=== PATIENT | male | born 1995 | race Caucasian/White ===

== ENCOUNTER 2017-11-05 18:11 | Emergency (ER) | payer OTHER ==
[~2017-11-05] VITALS: Ht 177.8 cm; Wt 65.4 kg
[~2017-11-05 18:11] MED LIST: LORT5TAB PO; MEDR4PAK3 PO; PENI500T PO; Z.0.NO CURRENT MEDS
[2017-11-05 18:29] VITALS: BP 125/76; PULSE 64; RESP 16; TEMP 98.6; O2SAT 97
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
== END 2017-11-05 19:47 | disposition home or self-care (01) ==
LOC: PHEFT 18:11
DX: H92.02 Otalgia, left ear (principal); H93.92 Unspecified disorder of left ear; Z72.89 Other problems related to lifestyle; V89.2XXA Person injured in unspecified motor-vehicle accident, traffic, initial encounter
CPT/HCPCS: 99282